=== PATIENT | female | born 1955 | race Caucasian/White ===

== ENCOUNTER → 2016-11-22 | Outpatient (CLI) | payer OTHER ==
--- NOTE | ~2016-11-22 | CT57 ---
[facility] A Service of [facility] RADIOLOGY TEXT RESULTS PATIENT: CHUNG PULIDO LOCATION: [facility] : 57 UNIT #: [id number] AGE: [address]: Damien Monzon MD SEX: F ORDER DR: [id number] [place] [id number] O MR#: [id number] Acc #: [id number] NAME: CHUNG PULIDO : 1955 SEX: F STUDY DATE/TIME: 11/22/2016 13:37 UNIT: [facility] ROOM: STUDY DESCRIPTION: CT Chest Wo Cont Attending Physician: Damien Monzon M.D. Referring Physician: Damien Monzon M.D. Ordering Physician: Damien Monzon M.D. Primary Care Physician: Damien Monzon M.D. MEDICAL IMAGING REPORT This report is preliminary unless electronic signature is present. EXAM CT chest INDICATIONS 2 small pulmonary nodules seen on an abnormal chest radiograph. Shortness of air. Right-sided chest pain. TECHNIQUE CT of the thorax without contrast. Coronal and sagittal reconstructions were obtained. This CT exam was performed with one or more of the following radiation dose reduction techniques: automatic control, adjustment of mA and/or kV according to patient size, and iterative reconstruction. Please note that this study was initially ordered with contrast, however, the patient's underlying renal insufficiency eGFR 49 precluded the use of IV contrast. Findings: No suspicious pulmonary nodules. There are several small calcified pulmonary nodules measuring less than 4 mm. These are likely what was identified on the chest radiograph. These are clearly benign. No focal consolidation. Central airways are patent. There are small bilateral pleural effusions. No pathologically enlarged mediastinal or hilar lymph nodes. There are some calcified mediastinal or hilar lymph nodes supporting prior granulomatous exposure. Thoracic aorta is normal in caliber. No pericardial effusion. Limited images of the upper abdomen were obtained. No acute findings. There is mild background hepatic steatosis. Gallstones are identified in the gallbladder. IMPRESSION [facility] A Service of [facility] RADIOLOGY TEXT RESULTS PATIENT: CHUNG PULIDO LOCATION: [facility] : 57 UNIT #: [id number] AGE: [address]: Damien Monzon MD SEX: F ORDER DR: 1. Small bilateral pleural effusions. 2. Multiple benign calcified granulomas are identified within the lung parenchyma. These small benign calcified granulomas correlate with the findings on the recent chest radiograph. No suspicious pulmonary findings. 3. Mild hepatic steatosis and cholelithiasis. Dictated by... Bhaskar Parra M.D. THIS IS AN ELECTRONICALLY VERIFIED REPORT Bhaskar Parra M.D. at 11/23/2016 7:51 AM ANGELLA/colton TD: 11/22/2016 18:43 JOB #: [id number] MEDICAL IMAGING REPORT Page 1 of 1
[2016-11-22 13:15] LABS: POC - CREATININE 1.2 mg/dL (0.44-1.03)
== END | disposition home or self-care (01) ==
LOC: SCT 13:01
PROVIDERS: Family Medicine
DX: R91.1 Solitary pulmonary nodule (principal); J90 Pleural effusion, not elsewhere classified; J84.10 Pulmonary fibrosis, unspecified; K80.20 Calculus of gallbladder without cholecystitis without obstruction; K76.0 Fatty (change of) liver, not elsewhere classified
CPT/HCPCS: 71250; 82565